=== PATIENT | male | born 1975 | race Caucasian/White ===

== ENCOUNTER → 2017-10-18 | Outpatient (CLI) | payer MEDICARE ==
[~2017-10-18] MED LIST: BACTRIM,SEPT1 TABLET PO; FLOMAX0.4 MG PO; LORTAB 5-325 M1 EACH PO; MAALOX MAXIMUM355 ML PO; MOTRIN800 MG PO; NAPROSYN500 MG PO; PRILOSEC20 MG PO; TUMS500 MG PO; ZOFRAN ODT4 MG PO
== END | disposition home or self-care (01) ==
LOC: CDC 10:45
DX: Z01.810 Encounter for preprocedural cardiovascular examination (principal); K42.9 Umbilical hernia without obstruction or gangrene
CPT/HCPCS: 93000

== ENCOUNTER 2017-10-22 07:31 | Day surgery (SDC) | payer MEDICARE ==
[~2017-10-22] VITALS: Ht 182.9 cm; Wt 120.2 kg
[2017-10-22 07:56] VITALS: BP 130/79
[2017-10-22] MEDS ORDERED: HYDROCODON-ACE1 EAC7 PO (11:35)
[2017-10-22 13:12] VITALS: BP 138/90
[2017-10-22 14:40] VITALS: BP 115/69
== END 2017-10-22 14:45 | disposition home or self-care (01) ==
LOC: SDC 07:31
PROC: 0WUF0JZ Supplement Abdominal Wall with Synthetic Substitute, Open Approach (ICD-10-PCS; principal; 2017-10-22)
DX: K42.9 Umbilical hernia without obstruction or gangrene (principal); E66.9 Obesity, unspecified; Z68.35 Body mass index [BMI] 35.0-35.9, adult; K66.0 Peritoneal adhesions (postprocedural) (postinfection); K21.9 Gastro-esophageal reflux disease without esophagitis; Z87.891 Personal history of nicotine dependence; Z79.1 Long term (current) use of non-steroidal anti-inflammatories (NSAID)
CPT/HCPCS: C1781; J0330; J0690; J1100; J1170; J2001; J2250; J2405; J2710; J3010; J3475; S0020